=== PATIENT | male | born 1980 ===

== ENCOUNTER 2021-12-07 15:33 | Emergency (ER) | payer BC, SELFPAY ==
[2021-12-07] VITALS (21 sets, daily range): BP systolic 112–172; BP diastolic 64–148; PULSE 62–90; RESP 9–23; TEMP 36.6; O2SAT 97–100
--- NOTE | 2021-12-07 16:00 | DI.RAD_ITS ---
Exam(s) XR TIB/FIB RT EXAM: XR TIB/FIB RT CLINICAL HISTORY: laceration, chainsaw mid shaft. TECHNIQUE: 2D digital imaging was performed of the right tibia and fibula. Three images were obtaine d. AP and lateral views were obtained. COMPARISON: No exams were available for comparison FINDINGS: BONES: On the lateral view there does appear to be a defect in the anterior cortex of the midshaft of the tibia at the level of the soft tissue laceration. The findings suspicious for fracture. There are radiopaque densities seen in the soft tissues anterior to the tibia in this level. These may rep resent fracture fragments and or foreign body. No bony destructive lesion is seen. Visualized portio n of knee and ankle joints are unremarkable. SOFT TISSUE: Soft tissue laceration anteriorly at the level of the midshaft of the tibia. IMPRESSION: 1. Findings suspicious for fracture of the anterior cortex of the mid tibia appreciated on the latera l view. Densities are seen in the soft tissues which may represent fracture fragments or radiopaque foreign bodies. 2. Soft tissue laceration anteriorly. DATA REPOSITORY: RADIATION DOSE DELIVERED:
--- NOTE | 2021-12-07 16:00 | DI.RAD_ITS ---
Exam(s) XR ELBOW RT COMPLETE EXAM: XR ELBOW RT COMPLETE CLINICAL HISTORY: pain. TECHNIQUE: 2D digital imaging was performed of the left elbow. Three images were obtained. AP, lat eral and oblique views were obtained. COMPARISON: No exams were available for comparison FINDINGS: BONES: No acute fracture is present. No bony destructive lesion is seen. JOINTS: The elbow is normally aligned. No joint effusion is seen. SOFT TISSUE: Mild soft tissue swelling posterior to the distal humerus. No radiopaque foreign body. IMPRESSION: No acute fracture or dislocation. DATA REPOSITORY: RADIATION DOSE DELIVERED:
--- NOTE | 2021-12-07 17:44 | ED.GENADUL_ITS ---
Discharge Plan Disposition Patient Disposition: [facility] Condition: Stable Discharge Details Clinical Impression: Fx upper tibia/fibula-op Primary Care Provider: Janna Cortez ED Provider: Vandana Vasquez Home Meds and New Rx's Prescriptions: No Action buprenorphine-naloxone [Suboxone] 8-2 mg Film 8 film sublingual DAILY 0RF Medical Decision Making Patient has an avulsion fracture noted to anterior cortex of tibia on right lower extremity Therefore department consulted, spoke with orthopedic, Dr. Hernandez who recommends washout of extremity given mechanism and injury pt was accepted to [place] [facility] [place] given lack of orthopedic coverage at our facility Patient received 1 g of Ancef His tetanus was updated He was given morphine for discomfort He is resting comfortably in room, he has been n.p.o. since this morning Medical Records Medical records reviewed: Yes I reviewed the patient's medical records. Lab Data Lab results reviewed: Yes I reviewed the patient's lab results. HPI General Date/Time Provider Initiated Documentation: 12/07/21 15:47 . HPI Narrative: This 41-year-old gentleman presents status post chainsaw injury. He states he was working with a chainsaw and accidentally cut his right lower extremity. He denies any additional injuries. He is otherwise reportedly healthy. The event occurred approximately 3 hours prior to arrival. Unsure regarding tetanus. Denies strength or sensation change. Was able to ambulate after injury. Related Data Home Medications Medication Instructions Recorded Confirmed buprenorphine 8 mg-naloxone 2 mg 8 film SUBLINGUAL DAILY 12/07/21 12/07/21 sublingual film (Suboxone) Allergies Allergy/AdvReac Type Severity Reaction Status Date / Time No Known Allergies Allergy Unverified 12/07/21 15:44 General Stated Complaint: Laceration BAKARI: 3 Review of Systems All systems reviewed & are unremarkable except as noted in HPI and below PFSH All Active Problems (Updated 12/07/21 @ 19:30 by JOSE Modi) Fx upper tibia/fibula-op (Acute) Social History Smoking/Tobacco Use Status: Current every day Tobacco Type: e-cigarettes Smoking risk assessment performed?: Yes Alcohol Intake: current Alcohol Intake frequency: 0-2 drinks per day Alcohol type: beer Drug use: Daily Substance use type: marijuana Details: Smoke it Do you feel safe at home: Yes Exam Const General: cooperative, comfortable and no acute distress Resp Effort & Inspection: normal respiratory effort Cardio Rate: regular rate Skin Other: 3 inch laceration mid shaft Full body images: 1. 3 inch laceration to fascia visualized Neuro Other: sensation and strength intact to bilateral lower extremities Extrem Upper/lower leg/hip images: 1. 3 inch laceration noted into fascia n/v intact strength and sensation intact Other: distal pulses intact to bilateral LE Course Vital Signs Vital signs: Vital Signs Temperature 36.6 C 12/07/21 15:38 Pulse 90 12/07/21 15:38 Respiratory Rate 18 12/07/21 15:38 Blood Pressure 172/148 H 12/07/21 15:38 Pulse Oximetry 100 12/07/21 15:38 Temperature 36.6 C 12/07/21 15:38 Temperature Source Temporal Artery Scan 12/07/21 15:38 Pulse 85 12/07/21 15:46 Respiratory Rate 18 12/07/21 15:38 Respiratory Effort Non-Labored 12/07/21 16:32 Blood Pressure 134/79 12/07/21 15:46 Blood Pressure Position Supine 12/07/21 15:38 Pulse Oximetry 100 12/07/21 15:38 Oxygen Delivery Method Room Air 12/07/21 15:38 Oxygen Flow Rate 0 12/07/21 15:38 PAWSS Have you Been Recently Intoxicated or Drunk Within the Last 30 days?: Yes Have you Ever Experienced Previous Episodes of Alcohol Withdrawal?: No Have you ever Experienced Withdrawal Seizures?: No Have you ever Experienced Delirium Tremens(DT)s?: No Have you ever undergone Alcohol Rehabilitation Treatment (i.e, inpt ot outpatient treatment programs)?: No Have you ever Experienced Blackouts?: No Have you ever Combined Alcohol with other Downers within the last 90 days?: No Have you ever Combined Alcohol with any other Substance of Abuse during the last 90 days?: No Positive Blood Alcohol level on Presentation? [PCS.BAL]: Unable to Obtain Evidence of Increased Autonomic Activity (i.e. HR>120, tremor, sweating, a gitation, nausea)?: No Result: 1
--- NOTE | 2021-12-07 18:00 | DI.VRAD_ITS ---
PROCEDURE INFORMATION: Exam: XR Right Elbow Exam date and time: 12/07/2021 5:07 PM Age: 41 years old Clinical indication: Other: Pain TECHNIQUE: Imaging protocol: XR Right elbow. Views: 3 or more views. COMPARISON: No relevant prior studies available. FINDINGS: Bones/joints: Normal. Soft tissues: Mild posterior soft tissue swelling. IMPRESSION: 1. Mild posterior soft tissue swelling. 2. No fracture or dislocation. No joint effusion. 3. No arthritic features Dictated and Authenticated by: Polo Wilhelm MD. Ordering:JANET Ross MD
--- NOTE | 2021-12-07 18:02 | DI.VRAD_ITS ---
Addendum created by Polo Wilhelm MD on 12/07/2021 6:08:26 PM EDT: Review of the images does suggest that there may be impact of the anterior tibial cortex. On the lateral view there is a linear lucency of the anterior cortex. This might represent overlying soft tissue gas. Cannot exclude a minor cortical incomplete fracture related to a penetrating laceration injury. Initial report created on 12/07/2021 6:01:32 PM EDT: PROCEDURE INFORMATION: Exam: XR Right Tibia and Fibula Exam date and time: 12/07/2021 5:04 PM Age: 41 years old Clinical indication: Other: Laceration, chainsaw mid shaft TECHNIQUE: Imaging protocol: XR Right tibia and fibula. Views: 2 views. COMPARISON: No relevant prior studies available. FINDINGS: Bones/joints: No fracture. Knee joint and ankle joint are intact. Soft tissues: Soft tissue laceration is suggested over the mid anterior lower leg. Minor radiopaque foreign debris is suggested on the lateral view. IMPRESSION: 1. Soft tissue laceration of the anterior mid right lower leg. Minor radiopaque debris in the laceration bed. 2. No fracture. Dictated and Authenticated by: Polo Wilhelm MD. Ordering:JANET Ross MD
[2021-12-07] MEDS: Ondansetron 4 MG/2 ML VIAL IVP (18:11)
[2021-12-07] MEDS: MORPHine 4 MG/ML SYR IVP ×2 (18:11→19:34)
[2021-12-07] MEDS: ceFAZolin 1 GM/50 ML BAG IVPB (18:12)
== END 2021-12-07 19:38 | disposition short-term general hospital (02) ==
PROVIDERS: Emergency Provider Physician Assistant
DX: S82.299 Other fracture of shaft of unspecified tibia (principal); M25.522 Pain in left elbow; W29.3XXA Contact with powered garden and outdoor hand tools and machinery, initial encounter
CPT/HCPCS: 90471; 96365; 96375; 96376; 99285; 73080; 73590; J0690; J2270; J2405